=== PATIENT | male | born 1950 | race Caucasian/White ===

== ENCOUNTER 2019-10-01 19:02 | Emergency (ER) | payer BC ==
[~2019-10-01] VITALS: Ht 175.3 cm; Wt 63.5 kg
[~2019-10-01 19:02] MED LIST: CYCL7.5T15 PO; HYDR-4833 PO; IBUP800T24 PO; PROM25TA5 PO
[2019-10-01] MEDS ORDERED: ACETAMINOPHEN 325 MG TAB PO ONE (19:45)
[2019-10-01 20:21] LABS: Urine Bacteria MOD /hpf (None Seen); Urine Blood 2+ /uL (Negative); Urine Mucus FEW (None Seen); Urine Specific Gravity 1.024 (1.001-1.035); Urine WBC 271 /hpf (0 - 3)
[2019-10-01 22:32] LABS: Eosinophils # (auto) 0 10 ^3/uL (0-0.8); Mean Corpuscular Hemoglobin 32.6 pg (28.0-32.0); Mean Corpuscular Hgb Conc. 34.6 g/dL (32.0-36.0); Neutrophils # (auto) 17.3 10 ^3/uL (1.6-8.6)
[2019-10-01 22:40] LABS: Basophils # (auto) 0 10 ^3/uL (0-0.2); Basophils % (auto) 0.2 % (0.0-2.0); Hematocrit 43.6 % (41.0-53.0); Hemoglobin 15.1 g/dL (13.5-17.5); Lymphocytes # (auto) 0.7 10 ^3/uL (0.4-5.4); Lymphocytes % (auto) 3.6 % (10.0-50.0); Mean Corpuscular Volume 94.4 fL (80.0-100.0); Monocytes # (auto) 1.9 10 ^3/uL (0-1.3); Monocytes % (auto) 9.6 % (0.0-12.0); Neutrophils % (auto) 86.6 % (37.0-80.0); Platelet Count (auto) 134 10^3/uL (140-450); Red Blood Cells 4.62 10^6/uL (4.5-5.90); Red Cell Distribution Width 13.6 % (11.8-14.3)
[2019-10-01 22:51] LABS: Albumin 3.9 g/dL (3.4-5.0); Amylase 62 U/L (25-115); Anion Gap 8 (5-15); BUN/Creatinine Ratio 12.7; Blood Urea Nitrogen 14 mg/dL (7-18); Calcium 8.9 mg/dL (8.5-10.1); Carbon Dioxide 26 mmol/L (21-32); Chloride 99 mmol/L (98-107); GFR African American 86 mL/min; GFR Non-African American 71 mL/min; Glucose 118 mg/dL (74-106); Lipase 110 U/L (73-393); Magnesium 1.6 mg/dL (1.6-2.6); Sodium 133 mmol/L (136-145)
[2019-10-01 22:56] LABS: Alanine Aminotransferase 26 U/L (16-61); Alkaline Phosphatase 96 U/L (45-117); Aspartate Aminotransferase 30 U/L (15-37); Bilirubin, Total 1.9 mg/dL (0.2-1.0); Total Protein 7.8 g/dL (6.4-8.2)
[2019-10-01 23:51] LABS: INR 1.14 (0.9-1.15); Partial Thromboplastin Time 26.8 sec (23.64-32.05)
[2019-10-02] MEDS ORDERED: SODIUM CHLORIDE 0.9% 1,000 ML IV ONE (01:30)
[2019-10-02] MEDS ORDERED: ONDANSETRON HCL 4 MG/2 ML VIAL IV ONE (02:30)
[2019-10-02] MEDS ORDERED: ACETAMINOPHEN 500 MG TAB PO ONE (02:45)
[2019-10-02 03:35] VITALS: BP 94/54
== END 2019-10-02 02:14 | disposition home or self-care (01) ==
LOC: ER 19:02
DX: N39.0 Urinary tract infection, site not specified (principal); N20.0 Calculus of kidney; K59.00 Constipation, unspecified; R19.7 Diarrhea, unspecified
CPT/HCPCS: 36415; 71046; 74176; 80053; 81001; 82150; 83605; 83690; 83735; 84484; 85025; 85610; 85730; 87040; 96361; 96374; 99285; J2405; J7030

== ENCOUNTER 2021-02-14 06:16 | Inpatient (IN) | payer BC ==
[~2021-02-14] VITALS: Ht 175.3 cm; Wt 59.0 kg
[~2021-02-14 06:16] MED LIST changes: -CYCL7.5T15 PO; +CYCL7.5T45 PO; -IBUP800T24 PO; +IBUP800T27 PO
[2021-02-14] MEDS ORDERED: SODIUM CHLORIDE 0.9% 1,000 ML IVB ONE (07:00)
[2021-02-14] MEDS ORDERED: KETOROLAC TROMETH 30 MG/ML 1ML VIAL IV ONE (07:00)
[2021-02-14 07:17] LABS: Basophils # (auto) 0.1 10 ^3/uL (0-0.2); Eosinophils # (auto) 0.1 10 ^3/uL (0-0.8); Eosinophils % (auto) 1.9 % (0.0-7.0); Hematocrit 40.7 % (41.0-53.0); Hemoglobin 13.9 g/dL (13.5-17.5); Lymphocytes # (auto) 2.3 10 ^3/uL (0.4-5.4); Lymphocytes % (auto) 34.8 % (10.0-50.0); Mean Corpuscular Hemoglobin 31.7 pg (28.0-32.0); Mean Corpuscular Hgb Conc. 34.2 g/dL (32.0-36.0); Mean Corpuscular Volume 92.6 fL (80.0-100.0); Monocytes # (auto) 0.7 10 ^3/uL (0-1.3); Neutrophils # (auto) 3.5 10 ^3/uL (1.6-8.6); Neutrophils % (auto) 52.3 % (37.0-80.0); Nucleated Red Blood Cells % 0.1 %; Red Blood Cells 4.39 10^6/uL (4.5-5.90); Red Cell Distribution Width 15.6 % (11.8-14.3); White Blood Cell 6.7 10^3/uL (4.4-10.8)
[2021-02-14 07:30] LABS: Calcium 8.7 mg/dL (8.5-10.1)
[2021-02-14 07:33] LABS: BUN/Creatinine Ratio 22.4; Bilirubin, Total 0.7 mg/dL (0.2-1.0); Total Protein 7.9 g/dL (6.4-8.2)
[2021-02-14 09:11] LABS: Urine Bacteria NONE SEEN /hpf (None Seen); Urine Blood 3+ /uL (Negative); Urine WBC 4381 /hpf (0 - 3); Urine WBC Clumps PRESENT /hpf (None Seen)
[2021-02-14 09:13] LABS: Urine Specific Gravity 1.025 (1.001-1.035)
[2021-02-14] MEDS ORDERED: ONDANSETRON HCL 4 MG/2 ML VIAL IV PRN (11:00)
[2021-02-14] MEDS ORDERED: traMADol HCL 50 MG TAB PO PRN (11:00)
[2021-02-14] MEDS ORDERED: levoFLOXacin 500MG 100 ML IV ONE (11:00)
[2021-02-14] MEDS ORDERED: MORPHINE SULF INJ 2 MG/ML SYRINGE 1ML IV PRN (11:00)
[2021-02-14] MEDS ORDERED: TEMAZEPAM 15 MG CAP PO PRN (11:00)
[2021-02-14] MEDS: SODIUM CHLORIDE 0.9% 1,000 ML IV SCH ×2 (11:00→23:18)
[2021-02-14] MEDS ORDERED: METOPROLOL TARTRATE 25 MG TAB PO ONE (11:45)
[2021-02-14] MEDS ORDERED: ASCORBIC ACID 500 MG TAB PO ONE (11:45)
[2021-02-14] MEDS ORDERED: CHOLECALCIFEROL (VITD3) 2,000 UNIT CAP/TAB PO ONE (11:45)
[2021-02-14] MEDS ORDERED: METOPROLOL TARTRATE 25 MG TAB PO SCH (12:00)
[2021-02-14] MEDS ORDERED: ZINC220C8 PO (15:49)
[2021-02-14] MEDS ORDERED: ATOR80TA PO (15:49)
[2021-02-14] MEDS ORDERED: CHOL20007 PO (15:49)
[2021-02-14] MEDS ORDERED: ASCO500T11 PO (15:49)
[2021-02-14] MEDS ORDERED: METO25TA5 PO (15:49)
[2021-02-14] MEDS ORDERED: ASPI-543 PO (15:49)
[2021-02-14 16:42] VITALS: BP 114/62
[2021-02-14] MEDS: ACETAMINOPHEN 500 MG TAB PO PRN (18:24)
[2021-02-14 22:00] VITALS: BP 108/50
[2021-02-15] MEDS: ACETAMINOPHEN 500 MG TAB PO PRN (05:04)
[2021-02-15 05:19] VITALS: BP 121/61
[2021-02-15 07:33] LABS: INR 1.16 (0.9-1.15); Partial Thromboplastin Time 26.7 sec (23.6-33.0)
[2021-02-15] MEDS: SODIUM CHLORIDE 0.9% 1,000 ML IV SCH ×2 (08:45→17:00)
[2021-02-15 09:00] VITALS: BP 100/51
[2021-02-15] MEDS: ASCORBIC ACID 500 MG TAB PO SCH (10:00)
[2021-02-15] MEDS: CHOLECALCIFEROL (VITD3) 2,000 UNIT CAP/TAB PO SCH (10:00)
[2021-02-15] MEDS: levoFLOXacin 500MG 100 ML IV SCH (10:32)
[2021-02-15 13:00] VITALS: BP 124/78
[2021-02-15] MEDS ORDERED: fentaNYL CITRATE 100 MCG/2 ML VL ONE (17:49)
[2021-02-15] MEDS ORDERED: MIDAZOLAM HCL 2MG/2ML 2ml VIAL (1mg/ml) ONE (17:49)
[2021-02-15] MEDS ORDERED: PROPOFOL 10 MG/ML 20 ML IV ONE (18:26)
[2021-02-15] MEDS ORDERED: LIDOCAINE 2% (LOCAL ANESTH.) PF 5ml SDV ONE (18:27)
[2021-02-15] MEDS ORDERED: ONDANSETRON HCL 4 MG/2 ML VIAL ONE (18:27)
[2021-02-15] MEDS ORDERED: HYDROmorphone HCL 2 MG/ML VL IV PRN (18:45)
[2021-02-15] MEDS ORDERED: ONDANSETRON HCL 4 MG/2 ML VIAL IV PRN (18:45)
[2021-02-15 22:00] VITALS: BP 142/79
[2021-02-16] MEDS: ACETAMINOPHEN 500 MG TAB PO PRN (03:24)
[2021-02-16] MEDS: SODIUM CHLORIDE 0.9% 1,000 ML IV SCH (03:27)
[2021-02-16 05:00] VITALS: BP 118/70
[2021-02-16 09:00] VITALS: BP 96/54
[2021-02-16] MEDS: levoFLOXacin 500MG 100 ML IV SCH (09:40)
[2021-02-16] MEDS: ASCORBIC ACID 500 MG TAB PO SCH (09:40)
[2021-02-16] MEDS: CHOLECALCIFEROL (VITD3) 2,000 UNIT CAP/TAB PO SCH (09:40)
== END 2021-02-16 12:22 | disposition home or self-care (01) | DRG 694 ==
LOC: ER 06:16 → OVERFLOW 10:35 → WEST WING 15:31
PROVIDERS: ADMIT Internal Medicine; ATTEND Internal Medicine
PROC: 0TF7XZZ Fragmentation in Left Ureter, External Approach (ICD-10-PCS; principal; 2021-02-14)
DX: N20.0 Calculus of kidney (principal); I25.10 Atherosclerotic heart disease of native coronary artery without angina pectoris; G89.4 Chronic pain syndrome; I10 Essential (primary) hypertension; Z88.0 Allergy status to penicillin; Z88.2 Allergy status to sulfonamides; I25.2 Old myocardial infarction; Z82.3 Family history of stroke; Z87.442 Personal history of urinary calculi; Z90.49 Acquired absence of other specified parts of digestive tract; Z95.1 Presence of aortocoronary bypass graft; Z95.5 Presence of coronary angioplasty implant and graft; Z20.822 Contact with and (suspected) exposure to COVID-19
CPT/HCPCS: 36415; 71046; 74176; 80053; 81001; 85025; 85610; 85730; 86850; 86900; 86901; 87081; 87086; 87426; 93005; 96361; 96365; 96375; G0378; J1885; J1956; J2001; J2250; J2405; J2704